=== PATIENT | male | born 1995 | race Caucasian/White ===

== ENCOUNTER 2017-06-04 11:40 | Emergency (ER) | payer OTHER ==
[2017-06-04 11:46] VITALS: RESP 16; TEMP 98.1
[2017-06-04] MEDS ORDERED: MAG HYDROX/AL HYDROX/SIMETH 30 ML UDCUP PO ONE (12:12)
[2017-06-04] MEDS ORDERED: LIDOCAINE 2% VISCOUS 15 ML UDCUP PO ONE (12:12)
[2017-06-04] MEDS ORDERED: HYOSCYAMINE SULFATE 0.125 MG TAB PO ONE (12:12)
--- NOTE | 2017-06-04 12:13 | EDPHY ---
H & P Stated Complaint: Intermit upper abd pain x 2 mo;worse last night,constipated; nausea Source: Patient Exam Limitations: No limitations - Personal History Current Tetanus Diphtheria and Acellular Pertussis (TDAP): Yes Tetanus Vaccine Date: 2013 - Medical/Surgical History Hx Asthma: No Hx Chronic Respiratory Disease: No Hx Diabetes: No Hx Cardiac Disease: No Hx Renal Disease: No Hx Cirrhosis: No Hx Alcoholism: No Hx HIV/AIDS: No Hx Splenectomy or Spleen Trauma: No Other PMH: denies - Social History Smoking Status: Never smoked Time Seen by Provider: 06/04/17 12:12 HPI/ROS: HPI: This is a 22-year-old male presents with Chief Complaint: Intermit upper abd pain x 2 mo;worse last night,constipated; nausea Location: Periumbilical back/lower abdomen Quality: Sharp cramping pain Duration: 2 months Signs and Symptoms: no fever, + nausea, no vomiting, no hematemesis, no blood in stool, no abdominal bloating, no diarrhea, no back pain, no urinary symptoms , no testicular/groin pain, no indigestion, no chest pain, no shortness of breath Timing: Occurs every several weeks, lasting for several hours at a time Severity: 05/01 Context: Patient reports last night around 12 30 midnight 10:30 p.m. thirty a.m. he had sudden onset of sharp nonradiating lower abdominal pain that he describes as cramping and associated with nausea. He has noted some dark stools over the last few weeks. Denies significant NSAID use. He has not noticed any correlation with food products. He felt like he was nauseous and wanted to peak but was unable to. He said the symptoms started in late March and occurred approximately 2-3 times. He has daily bowel movements. Denies hemorrhoids/blood in his stool/fevers. Not passing flatus. Modifying Factors: None Comment: ROS: see HPI Constitutional: No fever, no chills, no weight loss Eyes: No blurred vision Respiratory: No shortness of breath, no cough Cardiovascular: No chest pain, no palpitations Gastrointestinal: No nausea, no vomiting, no diarrhea, no hematemesis, no blood in stool Genitourinary: No dysuria, no blood in urine Extremities: No myalgias, no edema Neurologic: No weakness, no numbness Skin: No rashes, no petechiae Hematologic: No bruising, no bleeding MEDICAL/SURGICAL/SOCIAL HISTORY: Medical history: Generally healthy. Does not take any regular medications. Surgical history: Denies Social history: Local college student CONSTITUTIONAL: Very polite young adult white male awake and alert, no obvious distress HEENT: Atraumatic and normocephalic, PERRL, EOMI. Tympanic membranes clear. Oropharynx clear, no exudate and moist pink mucosa. Airway patent. No lymphadenopathy. No meningismus. Cardiovascular: Normal S1/S2, regular rate, regular rhythm, without murmur rub or gallop. PULMONARY/CHEST: Symmetrical and nontender. Clear to auscultation bilaterally. Good air movement. No accessory muscle usage. ABDOMEN: Soft, nondistended, nonfocal generalized mild tenderness, no rebound, no guarding, no peritoneal signs, no masses or organomegaly. No CVAT. Hyperactive bowel sounds heard all 4 quadrants EXTREMITIES: 2/2 pulses, strength 5/5, no deformities, no clubbing, no cyanosis or edema. NEUROLOGICAL: no focal neuro deficits. GCS 15. SKIN: Warm and dry, no erythema. no rash. Good capillary refill. (Julianna Domínguez) Constitutional: Initial Vital Signs Temperature (C) 36.7 C 06/04/17 11:43 Heart Rate 76 06/04/17 11:43 Respiratory Rate 16 06/04/17 11:43 Blood Pressure 120/72 06/04/17 11:43 O2 Sat (%) 99 06/04/17 11:43 O2 Delivery Mode Room Air Allergies/Adverse Reactions: No Known Allergies Allergy (Verified 06/04/17 11:42) Home Medications: Medication Instructions Recorded Polyethylene Glycol 3350 [Miralax 17 gm PO DAILY #30 pkt 06/04/17 17 gm (*)] Medical Decision Making - Diagnostics Imaging Results: Imaging Impressions Abdomen X-Ray 06/04/17 12:12 Impression: 1. Constipation. 2. No bowel obstruction. Abdomen CT 06/04/17 12:35 Impression: 1. Nothing acute in the abdomen and pelvis. 2. Significant constipation. 3. 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 ED Course/Re-evaluation: Labs, abdominal x-ray, CT abdomen and pelvis scan, oral medications ordered Given GI cocktail, 1 L normal saline, IV morphine with complete relief of pain Abdominal x-ray my read shows large amount of stool burden in the right side of colon Total bili unconjugated bili elevated mildly CT abdomen and pelvis scan shows no acute intra-abdominal process; does show significant constipation as well as nutritional services host syndrome Creatinine 1.3. UA no hematuria. Dr. Stockton spoke with Nephrology, Dr. Lane, regarding renal artery stenosis who advised follow up outpatient (Julianna Domínguez) Differential Diagnosis: Abdominal pain including but not limited to appendicitis, cholecystitis, gastritis and urinary tract infection. (Julianna Domínguez) Other Provider: Independent physician evaluation I evaluated and participated in the management of the patient. I also evaluated the patient independently. My co-signature indicates that I have reviewed this chart and I agree with the findings and plan of care as documented. My personal H&P findings include: The patient presents emergency department with a several month history of intermittent severe abdominal pain. The patient reports he had severe abdominal pain throughout the evening. The patient states this is happened several times over the past few months. He attributes his symptoms to constipation. He does endorse intermittent symptoms of a dark stool. He denies significant NSAID usage. The patient has no prior abdominal surgical history. The patient denies any history of fever, dysuria or hematuria. PHYSICAL EXAM: General Appearance: Alert, no distress Eyes: Pupils equal and round no pallor or injection ENT, Mouth: Mucous membranes moist Respiratory: There are no retractions, lungs are clear to auscultation Cardiovascular: Regular rate and rhythm Gastrointestinal: Mild generalized abdominal tenderness, no peritoneal signs Rectal: Brown stool Neurological: A&O, normal motor function, normal sensory exam, normal cranial nerves Skin: Warm and dry, no rashes Musculoskeletal: Neck is supple nontender Extremities: symmetrical, full range of motion ED Course: Patient presents the ED with intermittent abdominal pain and a reassuring abdominal examination. 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 The patient has no hematuria. The patient will follow up with Nephrology as an outpatient for further evaluation of this finding. There is no acute intervention required today. (Bennie Stockton) - Data Points Laboratory Results: Laboratory Results 06/04/17 12:15 06/04/17 12:15 06/04/17 06/04/17 06/04/17 Unknown 14:15 12:15 WBC RBC Hgb Hct MCV MCH MCHC RDW Plt Count MPV Neut % (Auto) Lymph % (Auto) [place] % (Auto) Eos % (Auto) Baso % (Auto) Nucleat RBC Rel Count Absolute Neuts (auto) Absolute Lymphs (auto) Absolute Monos (auto) Absolute Eos (auto) Absolute Basos (auto) Absolute Nucleated RBC Immature Gran % Immature Gran # Sodium 143 mEq/L mEq/L (134-144) Potassium 3.6 mEq/L mEq/L (3.5-5.2) Chloride 102 mEq/L mEq/L (97-110) Carbon Dioxide 27 mEq/l mEq/l (22-31) Anion Gap 14 mEq/L mEq/L (8-16) BUN 20 mg/dL mg/dL (7-23) Creatinine 1.3 mg/dL mg/dL (0.7-1.3) Estimated GFR > 60 Glucose 74 mg/dL mg/dL (70-100) Calcium 9.7 mg/dL mg/dL (8.5-10.4) Total Bilirubin 1.9 mg/dL H mg/dL (0.1-1.4) Conjugated Bilirubin 0.1 mg/dL mg/dL (0.0-0.5) Unconjugated Bilirubin 1.8 mg/dL H mg/dL (0.0-1.1) AST 41 IU/L IU/L (17-59) ALT 37 IU/L IU/L (21-72) Alkaline Phosphatase 67 IU/L IU/L (38-126) Total Protein 7.4 g/dL g/dL (6.3-8.2) Albumin 4.7 g/dL g/dL (3.5-5.0) Lipase 56 IU/L IU/L (23-300) Urine Color YELLOW Urine Appearance CLEAR Urine pH 6.0 (5.0-7.5) Ur Specific [place] > 1.035 H (1.002-1.030) Urine Protein NEGATIVE (NEGATIVE) Urine Ketones NEGATIVE (NEGATIVE) Urine Blood NEGATIVE (NEGATIVE) Urine Nitrate NEGATIVE (NEGATIVE) Urine Bilirubin NEGATIVE (NEGATIVE) Urine Urobilinogen NEGATIVE EU EU (0.2-1.0) Ur Leukocyte Esterase NEGATIVE (NEGATIVE) Urine Glucose NEGATIVE (NEGATIVE) Stool Occult Bld Scrn NEGATIVE (NEGATIVE) 06/04/17 12:15 WBC 8.23 10^3/uL 10^3/uL (3.80-9.50) RBC 5.97 10^6/uL 10^6/uL (4.40-6.38) Hgb 17.3 g/dL g/dL (13.7-17.5) Hct 49.8 % % (40.0-51.0) MCV 83.4 fL fL (81.5-99.8) MCH 29.0 pg pg (27.9-34.1) MCHC 34.7 g/dL g/dL (32.4-36.7) RDW 12.8 % % (11.5-15.2) Plt Count 212 10^3/uL 10^3/uL (150-400) MPV 10.9 fL fL (8.7-11.7) Neut % (Auto) 67.3 % % (39.3-74.2) Lymph % (Auto) 24.2 % % (15.0-45.0) [place] % (Auto) 7.4 % % (4.5-13.0) Eos % (Auto) 0.5 % L % (0.6-7.6) Baso % (Auto) 0.4 % % (0.3-1.7) Nucleat RBC Rel Count 0.0 % % (0.0-0.2) Absolute Neuts (auto) 5.54 10^3/uL 10^3/uL (1.70-6.50) Absolute Lymphs (auto) 1.99 10^3/uL 10^3/uL (1.00-3.00) Absolute Monos (auto) 0.61 10^3/uL 10^3/uL (0.30-0.80) Absolute Eos (auto) 0.04 10^3/uL 10^3/uL (0.03-0.40) Absolute Basos (auto) 0.03 10^3/uL 10^3/uL (0.02-0.10) Absolute Nucleated RBC 0.00 10^3/uL 10^3/uL (0-0.01) Immature Gran % 0.2 % % (0.0-1.1) Immature Gran # 0.02 10^3/uL 10^3/uL (0.00-0.10) Sodium Potassium Chloride Carbon Dioxide Anion Gap BUN Creatinine Estimated GFR Glucose Calcium Total Bilirubin Conjugated Bilirubin Unconjugated Bilirubin AST ALT Alkaline Phosphatase Total Protein Albumin Lipase Urine Color Urine Appearance Urine pH Ur Specific [place] Urine Protein Urine Ketones Urine Blood Urine Nitrate Urine Bilirubin Urine Urobilinogen Ur Leukocyte Esterase Urine Glucose Stool Occult Bld Scrn Medications Given: Discontinued Medications Al Hydroxide/Mg Hydroxide (Maalox Susp) 30 ml PO ONCE ONE Stop: 06/04/17 12:13 Last Admin: 06/04/17 12:49 Dose: 30 ml Hyoscyamine Sulfate (Levsin, Hyomax-Sl) 0.25 mg PO ONCE ONE Stop: 06/04/17 12:13 Last Admin: 06/04/17 12:49 Dose: 0.25 mg Sodium Chloride (Ns) 1,000 mls @ 0 mls/hr IV EDNOW ONE; Wide Open PRN Reason: Protocol Stop: 06/04/17 12:38 Last Admin: 06/04/17 12:50 Dose: 1,000 mls Lidocaine (Lidocaine 2% Viscous) 15 ml PO ONCE ONE Stop: 06/04/17 12:13 Last Admin: 06/04/17 12:49 Dose: 15 ml Morphine Sulfate (Morphine) 4 mg IVP EDNOW ONE Stop: 06/04/17 12:38 Last Admin: 06/04/17 12:51 Dose: 4 mg Departure - Departure Disposition: Home, Routine, Self-Care Clinical Impression: Stenosis of renal vein Constipation Qualifiers: Constipation type: unspecified constipation type Qualified Code(s): K59.00 - Constipation, unspecified Condition: Good Instructions: Constipation (ED), High Fiber Diet (ED), Kidney Ultrasound (ED) Additional Instructions: CT scan today shows moderate constipation and narrowing of the main body of the left renal vein. You are to call Nephrology for follow-up within 1-2 weeks for further evaluation. Please drink plenty of fluids, eat fruits and vegetables, take MiraLax daily. Referrals: Zenon Lane DO [Doctor of Osteopathy] - As per Instructions Prescriptions: Polyethylene Glycol 3350 [Miralax 17 gm (*)] 17 gm PO DAILY #30 pkt
[2017-06-04 12:29] LABS: % IMMATURE GRANULYOCYTES 0.2 % (0.0-1.1); ABSOLUTE IMMATURE GRANULOCYTES 0.02 10^3/uL (0.00-0.10); ADD DIFF? NO; ADD MORPH? NO; ADD SCAN? NO; ATYPICAL LYMPHOCYTE FLAG 0 (0-99); FRAGMENT RBC FLAG 0 (0-99); HEMATOCRIT 49.8 % (40.0-51.0); HEMOGLOBIN 17.3 g/dL (13.7-17.5); LEFT SHIFT FLG 0 (0-99); LIPEMIA HEMOLYSIS FLAG 90 (0-99); MEAN CELL HEMOGLOBIN CONCENTR. 34.7 g/dL (32.4-36.7); MEAN CELL VOLUME 83.4 fL (81.5-99.8); MEAN PLATELET VOLUME 10.9 fL (8.7-11.7); PLATELET CLUMPS FLAG 20 (0-99); PLATELET COUNT 212 10^3/uL (150-400); RED BLOOD CELL COUNT 5.97 10^6/uL (4.40-6.38); RED CELL DISTRIBUTION WIDTH 12.8 % (11.5-15.2)
[2017-06-04] MEDS ORDERED: NS 1,000 ML IV ONE (12:37)
[2017-06-04] MEDS ORDERED: IOPAMIDOL (ISOVUE-300) 100 ML BTL ONE (12:38)
[2017-06-04 12:40] LABS: ALANINE AMINOTRANSFERASE 37 IU/L (21-72); ALBUMIN 4.7 g/dL (3.5-5.0); ALKALINE PHOSPHATASE 67 IU/L (38-126); ANION GAP 14 mEq/L (8-16); ASPARTATE AMINOTRANSFERASE 41 IU/L (17-59); BILIRUBIN,TOTAL 1.9 mg/dL (0.1-1.4); BILIRUBIN-CONJUGATED 0.1 mg/dL (0.0-0.5); BILIRUBIN-UNCONJUGATED 1.8 mg/dL (0.0-1.1); CALCIUM 9.7 mg/dL (8.5-10.4); CARBON DIOXIDE 27 mEq/l (22-31); CHLORIDE 102 mEq/L (97-110); CREATININE 1.3 mg/dL (0.7-1.3); GLOMERULAR FILTRATION RATE > 60; GLUCOSE 74 mg/dL (70-100); POTASSIUM 3.6 mEq/L (3.5-5.2); SODIUM 143 mEq/L (134-144); TOTAL PROTEIN 7.4 g/dL (6.3-8.2)
[2017-06-04 14:35] LABS: COLOR YELLOW; LEUKOCYTE ESTERASE,URINE NEGATIVE (NEGATIVE); NITRITE,URINE NEGATIVE (NEGATIVE)
[2017-06-04 15:59] VITALS: BP 122/71; PULSE 57; O2SAT 96
== END 2017-06-04 15:59 | disposition home or self-care (01) ==
DX: K59.00 Constipation, unspecified (principal); I82.3 Embolism and thrombosis of renal vein; E86.9 Volume depletion, unspecified
CPT/HCPCS: 96374; Q9967